=== PATIENT | female | born 1985 | race Caucasian/White ===

== ENCOUNTER → 2016-08-27 | Outpatient (CLI) | payer OTHER ==
[~2016-08-27] VITALS: Ht 165.1 cm; Wt 79.5 kg
[~2016-08-27] MED LIST: LOVENOX40 MG/0.4 SC; Lovenox SC; PRENATAL TABLE1 EAC3 PO; TYLENOL EXTRA500 MG PO
[2016-08-27 09:06] VITALS: BP 117/70
== END | disposition home or self-care (01) ==
LOC: IVINF 08:57
DX: Z31.82 Encounter for Rh incompatibility status (principal)
CPT/HCPCS: 96372; J2790

== ENCOUNTER 2016-11-01 07:55 | Inpatient (IN) | payer OTHER ==
[2016-11-01] VITALS (12 sets, daily range): BP systolic 110–138; BP diastolic 61–88
[~2016-11-01] VITALS: Ht 162.6 cm; Wt 84.0 kg
[2016-11-01 08:54] LABS: EOSINOPHIL (%) 0.9 % (0-5); EOSINOPHIL COUNT 0.1 K/uL (0-0.3); HEMATOCRIT 35.1 % (36.0-46.0); IMMATURE GRANULOCYTE (%) 0.4 % (0.0-0.7); INSTRUMENT ABS NEUTROPHIL CT 6.7 K/uL; LYMPHOCYTE COUNT 3.6 K/uL (1.0-2.8); MCH 25.2 PG (29.0-34.0); MCHC 31.9 G/DL (30.0-36.0); MCV 79.1 FL (83-99); MEAN PLAT.VOLUME 10.4 uM^3 (9.5-12.4); MONOCYTE (%) 4.6 % (3-12); MONOCYTE COUNT 0.5 K/uL (0-0.8); NEUTROPHIL (%) 61.2 % (45-76); NEUTROPHIL COUNT 6.7 K/uL (1.8-6.4); PLATELET COUNT 331 K/uL (156-360); RBC DIS.WIDTH-CV 13.9 % (11.8-14.6); RBC DIS.WIDTH-SD 39.3 % (39-53); RED BLOOD COUNT 4.44 M/uL (3.80-5.20)
[2016-11-01 10:16] LABS: ADD MIUA? NO; BILIRUBIN NEGATIVE; BLOOD NEGATIVE; COLOR YELLOW ((YELLOW)); GLUCOSE (STRIP) NEGATIVE; KETONES NEGATIVE; LEUKOCYTES NEGATIVE; NITRITE NEGATIVE; PROTEIN (STRIP) NEGATIVE; SPECIFIC GRAVITY 1.012 (1.000-1.030); UCUL ADDED? NO; UROBILINOGEN 0.2 MG/DL (0.2-1.0)
[2016-11-02 06:58] VITALS: BP 138/62
[2016-11-02 07:26] LABS: EOSINOPHIL (%) 0.4 % (0-5); EOSINOPHIL COUNT 0.1 K/uL (0-0.3); HEMATOCRIT 33.1 % (36.0-46.0); IMMATURE GRANULOCYTE (%) 0.5 % (0.0-0.7); IMMATURE GRANULOCYTE COUNT 0.1 K/uL; LYMPHOCYTE COUNT 4.4 K/uL (1.0-2.8); MCH 25.6 PG (29.0-34.0); MEAN PLAT.VOLUME 10.5 uM^3 (9.5-12.4); MONOCYTE (%) 5.7 % (3-12); MONOCYTE COUNT 0.8 K/uL (0-0.8); NEUTROPHIL (%) 60.1 % (45-76); PLATELET COUNT 311 K/uL (156-360); RBC DIS.WIDTH-CV 14.1 % (11.8-14.6); RBC DIS.WIDTH-SD 40.9 % (39-53); RED BLOOD COUNT 4.14 M/uL (3.80-5.20); WHITE BLOOD COUNT 13.3 K/uL (4.1-10.2)
[2016-11-02 14:57] VITALS: BP 111/70
[2016-11-02 22:18] VITALS: BP 108/55
[2016-11-03 07:10] VITALS: BP 121/62
[2016-11-03] MEDS ORDERED: IBUPROFEN800 MG PO (10:24)
[2016-11-03] MEDS ORDERED: LOVENOX40 MG/0.4 SC (10:24)
== END 2016-11-03 12:10 | disposition home or self-care (01) | DRG 774 ==
LOC: LDRP-OP → 2WEST 07:56 → LDRP-OP 08:10 → 2WEST 18:43 → LDRP-OP 12-22 11:16
PROVIDERS: Advanced Practice Midwife
DX: O99.12 Other diseases of the blood and blood-forming organs and certain disorders involving the immune mechanism complicating childbirth (principal); D68.52 Prothrombin gene mutation; O77.0 Labor and delivery complicated by meconium in amniotic fluid; O75.3 Other infection during labor; E66.3 Overweight; O99.824 Streptococcus B carrier state complicating childbirth; O70.0 First degree perineal laceration during delivery; Z3A.39 39 weeks gestation of pregnancy; Z37.0 Single live birth; Z82.49 Family history of ischemic heart disease and other diseases of the circulatory system; Z90.49 Acquired absence of other specified parts of digestive tract
CPT/HCPCS: 81003; 83030; 85025; 86870; 86900; 86901; J1650; J2540; J2790; J7120